=== PATIENT | female | born 1995 | race Caucasian/White ===

== ENCOUNTER 2018-08-28 22:40 | Emergency (ER) | payer OTHER ==
[~2018-08-28] VITALS: Ht 154.9 cm; Wt 127.0 kg
[2018-08-28 22:49] VITALS: BP 144/100
== END 2018-08-28 23:21 | disposition home or self-care (01) ==
LOC: M.ERS 22:40
DX: S93.492A Sprain of other ligament of left ankle, initial encounter (principal); Z88.0 Allergy status to penicillin; Z91.040 Latex allergy status; Z88.8 Allergy status to other drugs, medicaments and biological substances; W10.9XXA Fall (on) (from) unspecified stairs and steps, initial encounter; Y93.89 Activity, other specified; Y92.89 Other specified places as the place of occurrence of the external cause; Y99.8 Other external cause status